=== PATIENT | female | born 1995 | race Caucasian/White ===

== ENCOUNTER 2017-09-18 13:11 | Emergency (ER) | payer OTHER ==
[~2017-09-18] VITALS: Ht 147.3 cm; Wt 43.6 kg
[2017-09-18 13:14] VITALS: BP 109/76; Ht 147.3 cm; Wt 43.6 kg
== END 2017-09-18 14:02 | disposition home or self-care (01) ==
LOC: ED 13:11
DX: S63.501A Unspecified sprain of right wrist, initial encounter (principal); S60.221A Contusion of right hand, initial encounter; J45.909 Unspecified asthma, uncomplicated; Z88.8 Allergy status to other drugs, medicaments and biological substances; W22.8XXA Striking against or struck by other objects, initial encounter; Y93.89 Activity, other specified; Y99.8 Other external cause status; Y92.89 Other specified places as the place of occurrence of the external cause

== ENCOUNTER 2018-02-22 08:32 | Emergency (ER) | payer OTHER ==
[~2018-02-22] VITALS: Ht 149.9 cm; Wt 44.9 kg
[2018-02-22 09:25] VITALS: BP 104/64
== END 2018-02-22 09:25 | disposition home or self-care (01) ==
LOC: ED 08:32
DX: S46.912A Strain of unspecified muscle, fascia and tendon at shoulder and upper arm level, left arm, initial encounter (principal); J45.909 Unspecified asthma, uncomplicated; Z88.8 Allergy status to other drugs, medicaments and biological substances; X58.XXXA Exposure to other specified factors, initial encounter; Y93.89 Activity, other specified; Y92.89 Other specified places as the place of occurrence of the external cause; Y99.8 Other external cause status

== ENCOUNTER 2018-05-12 13:22 | Emergency (ER) | payer OTHER ==
[~2018-05-12] VITALS: Ht 149.9 cm; Wt 43.5 kg
[2018-05-12 13:28] VITALS: Ht 149.9 cm; Wt 43.5 kg
[2018-05-12 15:06] VITALS: BP 119/63
== END 2018-05-12 15:06 | disposition home or self-care (01) ==
LOC: ED 13:22
DX: M65.841 Other synovitis and tenosynovitis, right hand (principal); J45.909 Unspecified asthma, uncomplicated; Z88.8 Allergy status to other drugs, medicaments and biological substances

== ENCOUNTER 2018-06-05 11:25 | Emergency (ER) | payer OTHER ==
[~2018-06-05] VITALS: Ht 149.9 cm; Wt 42.4 kg
[2018-06-05 11:30] VITALS: Ht 149.9 cm; Wt 42.4 kg
[2018-06-05 12:13] LABS: UA SPECIFIC GRAVITY >=1.030 (1.005-1.035); microscopic required? YES; urine erythrocyte NEGATIVE (NEGATIVE)
[2018-06-05 12:31] LABS: ALBUMIN 4.1 g/dL (3.4-5.0); CALCIUM 9.2 mg/dL (8.5-10.1); CARBON DIOXIDE 28.3 mmol/L (21-32); CHLORIDE SERUM 103 mmol/L (98-107); CREATININE SERUM 0.7 mg/dL (0.6-1.0); GFR1 > 60 mL/min; GLUCOSE SERUM 82 mg/dL (74-106); POTASSIUM SERUM 4.3 mmol/L (3.5-5.1); SODIUM SERUM 139 mmol/L (136-145)
[2018-06-05 12:41] LABS: AMPHETAMINE QUAL UR NONE DETECTED (See below)
[2018-06-05 12:52] LABS: ALKALINE PHOSPHATASE 68 U/L (46-116); ALT/SGPT 18 U/L (14-59); AST/SGOT 29 U/L (15-37); T4(THYROXINE) 8.5 ug/dL (4.7-13.3); TOTAL PROTEIN, SERUM 7.9 g/dL (6.4-8.2)
[2018-06-05 12:58] LABS: BASOPHIL % 0.9 % (0-2); PLATELET COUNT 245 x10^3mcL (130-400)
[2018-06-05 13:50] VITALS: BP 104/57
== END 2018-06-05 13:50 | disposition home or self-care (01) ==
LOC: ED 11:25
PROVIDERS: Emergency Medicine
DX: R53.1 Weakness (principal); R06.02 Shortness of breath; J45.909 Unspecified asthma, uncomplicated; Z88.8 Allergy status to other drugs, medicaments and biological substances
CPT/HCPCS: 36415; 82962

== ENCOUNTER 2019-02-03 18:20 | Emergency (ER) | payer OTHER ==
[~2019-02-03] VITALS: Ht 149.9 cm; Wt 41.7 kg
[2019-02-03 18:35] VITALS: Ht 149.9 cm; Wt 41.7 kg
[2019-02-03 19:18] VITALS: BP 93/50
== END 2019-02-03 19:19 | disposition home or self-care (01) ==
LOC: ED 18:20
DX: S63.616A Unspecified sprain of right little finger, initial encounter (principal); J45.909 Unspecified asthma, uncomplicated; Z88.8 Allergy status to other drugs, medicaments and biological substances; W22.01XA Walked into wall, initial encounter; Y93.89 Activity, other specified; Y92.89 Other specified places as the place of occurrence of the external cause; Y99.8 Other external cause status

== ENCOUNTER 2019-04-23 18:02 | Emergency (ER) | payer OTHER ==
[~2019-04-23] VITALS: Ht 149.9 cm; Wt 41.8 kg
[2019-04-23 18:10] VITALS: Ht 149.9 cm; Wt 41.8 kg
[2019-04-23 19:29] VITALS: BP 100/73
== END 2019-04-23 19:29 | disposition home or self-care (01) ==
LOC: ED 18:02
DX: J06.9 Acute upper respiratory infection, unspecified (principal); J45.901 Unspecified asthma with (acute) exacerbation; Z88.8 Allergy status to other drugs, medicaments and biological substances
CPT/HCPCS: Q0092

== ENCOUNTER 2020-07-01 17:29 | Emergency (ER) | payer OTHER ==
[~2020-07-01] VITALS: Ht 149.9 cm; Wt 39.9 kg
[2020-07-01 17:37] VITALS: Ht 149.9 cm; Wt 39.9 kg
[2020-07-01 19:53] LABS: BASOPHIL % 0.2 % (0-2); PLATELET COUNT 313 x10^3mcL (130-400); RED CELL DISTRIBUTION WIDTH 13.4 % (11.5-14.5)
[2020-07-01 20:03] LABS: CALCIUM 8.7 mg/dL (8.5-10.1); CARBON DIOXIDE 27.4 mmol/L (21-32); CHLORIDE SERUM 107 mmol/L (98-107); CREATININE SERUM 0.8 mg/dL (0.6-1.0); GFR1 > 60 mL/min; GLUCOSE SERUM 104 mg/dL (74-106); POTASSIUM SERUM 3.4 mmol/L (3.5-5.1); SODIUM SERUM 145 mmol/L (136-145)
[2020-07-01 20:07] LABS: ALBUMIN 4.3 g/dL (3.4-5.0); ALKALINE PHOSPHATASE 58 U/L (46-116); ALT/SGPT 23 U/L (14-59); AST/SGOT 30 U/L (15-37); BILIRUBIN TOTAL 1.4 mg/dL (0.20-1.00); LIPASE 40 IU/L (73-393); TOTAL PROTEIN, SERUM 7.7 g/dL (6.4-8.2)
[2020-07-01 20:51] VITALS: BP 92/54
== END 2020-07-01 20:51 | disposition home or self-care (01) ==
LOC: ED 17:29
PROVIDERS: Emergency Medicine
DX: E86.0 Dehydration (principal); R11.2 Nausea with vomiting, unspecified; J45.909 Unspecified asthma, uncomplicated; Z88.8 Allergy status to other drugs, medicaments and biological substances
CPT/HCPCS: J2405